=== PATIENT | male | born 1990 | race Caucasian/White ===

== ENCOUNTER 2023-10-02 20:09 | Emergency (ER) | payer SELFPAY ==
[~2023-10-02] VITALS: Ht 175.3 cm; Wt 108.9 kg
[2023-10-02 21:00] VITALS: BP 125/69; PULSE 86; RESP 16; TEMP 98; O2SAT 99
[2023-10-02] MEDS ORDERED: CEPH-588 PO (21:44)
== END 2023-10-02 22:00 | disposition home or self-care (01) ==
LOC: MED 20:09
DX: S61.431A Puncture wound without foreign body of right hand, initial encounter (principal); W57.XXXA Bitten or stung by nonvenomous insect and other nonvenomous arthropods, initial encounter; Y93.89 Activity, other specified; Y92.89 Other specified places as the place of occurrence of the external cause; Y99.8 Other external cause status
CPT/HCPCS: 99283

== ENCOUNTER 2023-10-04 11:49 | Emergency (ER) | payer SELFPAY ==
[~2023-10-04] VITALS: Ht 175.3 cm; Wt 108.9 kg
[~2023-10-04 11:49] MED LIST: CEPH-588 PO
[2023-10-04 12:21] VITALS: BP 135/91; PULSE 64; RESP 20; TEMP 98; O2SAT 97
[2023-10-04] MEDS ORDERED: IBUPROFEN 600 MG TAB PO ONE (12:35)
[2023-10-04] MEDS ORDERED: cefTRIAXone 500 MG in LIDOCAINE MPF 1% 1 ML IM ONE (12:35)
[2023-10-04] MEDS ORDERED: SULFAMETH/TRIMETH DS 800/160MG 1 TAB PO ONE (12:35)
[2023-10-04] MEDS ORDERED: SULF-59 PO (12:40)
[2023-10-04] MEDS ORDERED: cefTRIAXone 500 MG VIAL ONE (12:46)
[2023-10-04] MEDS ORDERED: LIDOCAINE MPF 1% 5 ML ONE (12:47)
[2023-10-04 13:30] VITALS: O2SAT 97
== END 2023-10-04 13:33 | disposition home or self-care (01) ==
LOC: MED 11:49
DX: L03.113 Cellulitis of right upper limb (principal)
CPT/HCPCS: 90471; 90715; 96372; 99284; J0696; J2001